=== PATIENT | female | born 1975 ===

== ENCOUNTER 2018-10-30 13:12 | Outpatient (CLI) | payer OTHER | END 2018-10-30 13:13 | disposition home or self-care (01) | LOC: C.USIC 13:12 ==

== ENCOUNTER 2018-11-14 11:44 | Outpatient (CLI) | payer OTHER | END 2018-11-14 11:45 | disposition home or self-care (01) | LOC: C.LAB 11:44 | DX: Z13.220 Encounter for screening for lipoid disorders (principal); E07.9 Disorder of thyroid, unspecified; Z13.1 Encounter for screening for diabetes mellitus ==

== ENCOUNTER 2018-11-24 08:49 | Day surgery (SDC) | payer OTHER ==
--- NOTE | 2018-11-24 09:32 | CP.SDSHP ---
Same Day Surgery H & P - History Proposed Procedure: US guided FNA of thyroid mass Pre-Op Diagnosis: Thyroid mass - Allergies Allergies: Allergies Unobtainable Allergy (Unverified 10/15/16 10:17) - Physical Exam Mental Status: Alert & Oriented x3 - Impression Impression: Pt with a 3.2 cm complex right thyroid nodule. Plan US guided FNA. Pt. Evaluated Today:Candidate for Anesthesia & Procedure: No - Date & Time Date: 11/24/18 Time: 09:10 Short Stay Discharge - Short Stay Discharge Admitting Diagnosis/Reason for Visit: DISORDER OF THYROID, UNSPECIFIED Disposition: HOME/ ROUTINE
--- NOTE | 2018-11-24 09:39 | PCM.SURG1 ---
Surgeon's Initial Post Op Note - Surgeon's Notes Surgeon: Lito Stewart MD Regulatory Process Manager: NONE Type of Anesthesia: Local Pre-Operative Diagnosis: Right thyroid mass Operative Findings: Complex right thyroid mass Post-Operative Diagnosis: Right thyroid mass Operation Performed: US guided right thyroid mass FNA Specimen/Specimens Removed: 25 g FNA x 5 passes Estimated Blood Loss: EBL {In ML}: 1 Blood Products Given: N/A Drains Used: No Drains Post-Op Condition: Good Date of Surgery/Procedure: 11/24/18 Time of Surgery/Procedure: 09:35
--- NOTE | 2018-11-24 12:18 | US ---
PROCEDURE: Date of Procedure: 11/24/2018 PROCEDURE: 1. Ultrasound guided FNA of right thyroid nodule, CPT 22430 2. Ultrasound guidance for FNA, 17304 Medications: 3cc 1% Lidocaine HISTORY: Enlarged right thyroid mass. TECHNIQUE: Following informed consent and procedure time-out, a limited ultrasound patient's neck confirmed the presence of a 3.1 Cm complex right thyroid nodule which is predominantly solid. After the patient's neck was prepped and draped in the usual sterile fashion, the skin was anesthetized with 1% lidocaine. Ultrasound-guided fine needle aspiration was then performed of the dominant right thyroid nodule. A total of 5 passes were made into the nodule with 25 gauge needle under ultrasound guidance. The FNA specimen was sent for routine pathology and genetics . Post biopsy ultrasound showed no hematoma. IMPRESSION: Ultrasound-guided FNA of the dominant right thyroid nodule.
== END 2018-11-24 09:31 | disposition home or self-care (01) ==
LOC: C.SPRAD 08:49
PROVIDERS: ATTEND Radiology Vascular & Interventional Radiology
DX: E04.1 Nontoxic single thyroid nodule (principal)